=== PATIENT | female | born 1965 | race Caucasian/White ===

== ENCOUNTER 2017-01-13 12:38 | Emergency (ER) | payer OTHER ==
[~2017-01-13] VITALS: Ht 170.2 cm; Wt 69.6 kg
[~2017-01-13 12:38] MED LIST: ACET-703 PO
[2017-01-13 12:47] VITALS: BP 125/79; PULSE 88; RESP 16; TEMP 98.7; O2SAT 99
[2017-01-13] MEDS ORDERED: NORE5TAB PO (12:55)
[2017-01-13] MEDS ORDERED: ANUC25SU RECTAL (13:14)
--- NOTE | 2017-01-13 13:14 | PD ---
HPI Chief Complaint: GI Complaint Time Seen by Provider: 13:01 Travel History International Travel<30 days: No Contact w/Intl Traveler<30days: No Traveled to known affect area: No History of Present Illness HPI 51-year-old female complains of rectal bleeding last night and this morning. Patient states that she started having fresh blood dripping out of her rectum last night when she had a bowel movement and again this morning. Patient denies any abdominal pain. Patient denies any fever chills. Patient has history hemorrhoids in the past. Patient denies any dysuria or frequency. Patient denies any vaginal discharge or bleeding. Patient states that she had colonoscopy done last year was normal. Patient denies any family history of colon cancer. 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) Neurologic: Yes (left hand fingers tingling at times headaches) Psychiatric: No Reproductive: No Respiratory: No Immunizations Current: No Thyroid Disease: No Tetanus Vaccination: > 5 Years Influenza Vaccination: Yes ?: Not Menopausal: Yes Past Surgical History Abdominal Surgery: No AICD: No Body Medical Devices: saline implants Cardiac Surgery: No Ear Surgery: No Endocrine Surgery: No Eye Surgery: No Genitourinary Surgery: No Gynecologic Surgery: No Joint Replacement: No Neurologic Surgery: Yes (LAMINECTOMY) Oral Surgery: No Pacemaker: No Thoracic Surgery: Yes (breast implants) Other Surgery: Yes (BREAST IN 2002) Social History Alcohol Use: No Tobacco Use: No Substance Use: No Allergies-Medications (Allergen,Severity, Reaction): Coded Allergies: No Known Allergies (Verified , 01/13/17) Reported Meds & Prescriptions Reported Meds & Active Scripts Active Reported Norethindrone (Norethindrone Acetate) 5 Mg Tab 5 Mg PO DAILY Review of Systems General / Constitutional: No: Fever Eyes: No: Visual changes HENT: No: Headaches Cardiovascular: No: Chest Pain or Discomfort Respiratory: No: Shortness of Breath Gastrointestinal: Positive: Hematochezia, No: Abdominal Pain Genitourinary: No: Dysuria Musculoskeletal: No: Pain Skin: No Rash Neurologic: No: Weakness Psychiatric: No: Depression Endocrine: No: Polydipsia Hematologic/Lymphatic: No: Easy Bruising Physical Exam Narrative GENERAL: Well-nourished, well-developed patient. SKIN: Focused skin assessment warm/dry. HEAD: Normocephalic. EYES: No scleral icterus. No injection or drainage. NECK: Supple, trachea midline. No JVD or lymphadenopathy. CARDIOVASCULAR: Regular rate and rhythm without murmurs, gallops, or rubs. RESPIRATORY: Breath sounds equal bilaterally. No accessory muscle use. GASTROINTESTINAL: Abdomen soft, non-tender, nondistended. Rectal exam patient has internal hemorrhoids with tear on the mucous membrane. No active bleeding. MUSCULOSKELETAL: No cyanosis, or edema. BACK: Nontender without obvious deformity. No CVA tenderness. Data Data Last Documented VS Vital Signs Date Time Temp Pulse Resp B/P (MAP) Pulse Ox O2 Delivery O2 Flow Rate FiO2 01/13/17 12:47 98.7 88 16 125/79 (94) 99 MDM Medical Decision Making Medical Screen Exam Complete: Yes Emergency Medical Condition: Yes Differential Diagnosis Differential diagnosis including hemorrhoidal bleeding, GI bleed. Narrative Course 51-year-old female with rectal bleeding. Examination consistent with bleeding from internal hemorrhoid. Patient has no abdominal pain. Vital signs stable. Diagnosis Primary Impression: Internal hemorrhoid, bleeding Patient Instructions: General Instructions Additional Instructions: Anusol HC as directed. Stool softener. Sitz bath. Follow-up with GI specialist. Return if persistent bleeding or worse. Med/Other Pt SpecificInfo: Prescription(s) given Scripts Hydrocortisone Acetate Supp (Anucort-Hc Supp) 25 Mg Supp 25 MG RECTAL TID for Hemorrhoids, #21 SUPP 0 Refills Prov: Juan Carlos Roth MD 01/13/17 Disposition: 01 DISCHARGE HOME Condition: Stable Juan Carlos Roth MD Jan 13, 2017 13:14
== END 2017-01-13 13:36 | disposition home or self-care (01) ==
LOC: PHED 12:38
DX: K64.8 Other hemorrhoids (principal); K92.1 Melena; F32.9 Major depressive disorder, single episode, unspecified
CPT/HCPCS: 99283

== ENCOUNTER 2017-04-08 09:05 | Emergency (ER) | payer OTHER | END 2017-04-08 09:45 | disposition home or self-care (01) | LOC: PHEFT 09:05 | DX: J40 Bronchitis, not specified as acute or chronic (principal); R50.9 Fever, unspecified; F32.9 Major depressive disorder, single episode, unspecified | CPT/HCPCS: 99284 ==